=== PATIENT | male | born 1975 | race Caucasian/White ===

== ENCOUNTER 2021-03-11 00:31 | Emergency (ER) | payer OTHER, SELFPAY ==
[2021-03-11 00:49] VITALS: BP 142/92; PULSE 85; RESP 18; TEMP 36.6; O2SAT 97; BMI 29.4
--- NOTE | 2021-03-11 01:35 | CTR_ITS ---
PROCEDURE INFORMATION: Exam: CT Abdomen And Pelvis Without Contrast Exam date and time: 03/11/2021 1:35 AM Age: 45 years old Clinical indication: Abdominal pain; Left; Prior surgery; Surgery type: Appy; Patient HX: Lt flank pain TECHNIQUE: Imaging protocol: Computed tomography of the abdomen and pelvis without contrast. Radiation optimization: All CT scans at this facility use at least one of these dose optimization techniques: automated exposure control; mA and/or kV adjustment per patient size (includes targeted exams where dose is matched to clinical indication); or iterative reconstruction. COMPARISON: No relevant prior studies available. RADIATION DOSE METRICS: Total DLP (mGy-cm): 1596.51 FINDINGS: Liver: Calcified hepatic granulomas. Gallbladder and bile ducts: Contracted gallbladder. Pancreas: Normal. No ductal dilation. Spleen: Calcified splenic granulomas. One or more accessory splenules. Adrenal glands: Normal. No mass. Kidneys and ureters: 3 mm left UVJ stone with mild left hydronephrosis. Stomach and bowel: Unremarkable. No obstruction. No mucosal thickening. Appendix: No evidence of appendicitis. Intraperitoneal space: Unremarkable. No free air. No significant fluid collection. Vasculature: Calcification of the abdominal aorta and/or iliac arteries consistent with atherosclerotic vessel disease. Lymph nodes: Unremarkable. No enlarged lymph nodes. Urinary bladder: Unremarkable as visualized. Reproductive: Unremarkable as visualized. Bones/joints: Severe L5-S1 degenerative disc disease and spondylosis with Modic type III sclerotic endplate degenerative changes. Soft tissues: Unremarkable. CT/CT kidney stone [id number] IMPRESSION: 3 mm left UVJ stone with mild left hydronephrosis. Radiation Dose CTDIVOL = (mGy): DLP = 1596.51 (mGy-cm)
--- NOTE | 2021-03-11 01:40 | ED_ITS ---
HPI - Abdominal Pain General: Chief Complaint: Abdominal Pain Stated Complaint: ab pain, poss kidney Time Seen by Provider: 03/11/21 01:17 Source: patient Mode of arrival: ambulatory Limitations: no limitations History of Present Illness: HPI narrative: 45-year-old male states he started having left-sided flank pain 24 hours ago its gradually radiated to his left groin. He states pain is sharp in nature and rates it a 8 out of 10. He has had nausea and vomiting from the pain. Denies any worsening improving factors. Denies any tenderness on palpation. He denies any history of kidney stones. Denies any difficulty urinating. Associated Symptoms: Reports nausea and vomiting; Denies chills and fever(s) Review of Systems Const: Denies: fever(s), chills, body aches or change in appetite Eyes: Denies: blurry vision or eye discomfort ENMT: Denies: throat pain or dental pain Card: Denies: chest pain Resp: Denies: dyspnea GI: Reports: nausea and vomiting : Reports: flank pain Musc: Denies: neck pain or back pain Skin/Breast: Denies: rash Neuro: Denies: headache(s) Psych: Denies: depression Ryan/Lymph: Denies: easy bruising All/Imm: Denies: urticaria Physical Exam Const: COMMON NORMALS: no acute distress, patient oriented x3 and healthy appearing HENMT: COMMON NORMALS: normocephalic and atraumatic HEAD & SCALP: normocephalic and atraumatic Eye: COMMON NORMALS: Equal, round and reactive pupils present and EOMs intact bilaterally PUPIL: Yes Equal, round and reactive pupils present Neck/C-Spine: COMMON NORMALS: full ROM and supple Chest: COMMONS NORMALS: normal inspection of the chest and normal palpation of entire chest wall Resp: COMMON NORMALS: normal respiratory effort, No retractions, No use of accessory muscles and clear to auscultation bilaterally AUSCULTATION: clear to auscultation bilaterally Cardio: COMMON NORMALS: regular rate, regular rhythm and No murmurs present (Cardio) RATE: regular rate RHYTHM: regular rhythm GI: COMMON NORMALS: Normal to inspection, nondistended, normoactive bowel sounds present, Soft to palpation, non-tender and no masses PALPATION: Yes Soft to palpation Extremity: COMMON NORMALS: normal to inspection and full ROM Neuro: COMMON NORMALS: patient oriented x3, moves all extremities and no focal motor deficits Psych: COMMON NORMALS: mental status grossly normal, Normal thought process present and cooperative THOUGHT PROCESS: Normal thought process present Skin: COMMON NORMALS: no rashes or lesions noted and no wounds GENERAL SKIN EXAM: no rashes or lesions noted Course Vital Signs: Vital signs: Vital Signs Temperature 98 F 03/11/21 03:45 Pulse Rate 62 03/11/21 03:45 Respiratory Rate 17 03/11/21 03:45 Blood Pressure 142/71 03/11/21 03:45 Pulse Oximetry 97 03/11/21 03:45 MDM - Abdominal Pain MDM Narrative: Medical decision making narrative: Patient presents with a kidney stone. He is well-appearing here and his pain is much improved. He should have no problems passing the stone. Will prescribe him pain meds and have him follow-up with urology and return if worsening. Lab Data: Labs: Lab Results 03/11/21 03/11/21 03/11/21 Range/Units 02:30 02:30 02:49 WBC Cancelled Corrected WBC Cancelled RBC Cancelled Hgb Cancelled Hct Cancelled MCV Cancelled MCH Cancelled MCHC Cancelled RDW Cancelled Plt Count Cancelled MPV Cancelled Gran % Cancelled Neut % (Auto) Cancelled Lymph % (Auto) Cancelled [place] % (Auto) Cancelled Eos % (Auto) Cancelled Baso % (Auto) Cancelled Neut # (Auto) Cancelled Lymph # (Auto) Cancelled [place] # (Auto) Cancelled Eos # (Auto) Cancelled Baso # (Auto) Cancelled Absolute Gran (aut o) Cancelled Nucleated RBC % (a uto) Cancelled Nucleated RBCs # Cancelled Sodium Cancelled 133 L Potassium Cancelled 3.8 Chloride Cancelled 101 Carbon Dioxide Cancelled 20 L Anion Gap Cancelled 15.8 BUN Cancelled 12 Creatinine Cancelled 1.2 GFR Calculation Cancelled 64.9 L Glucose Cancelled 118 H Calculated Osmolal ity Cancelled 277 L Calcium Cancelled 9.0 Total Bilirubin Cancelled 0.5 AST Cancelled 21 ALT Cancelled 16 Alkaline Phosphata se Cancelled 106 Total Protein Cancelled 6.6 Albumin Cancelled 3.9 Globulin Cancelled 2.7 Lipase Cancelled 12 L 03/11/21 Range/Units 02:49 WBC 13.9 H Corrected WBC RBC 4.48 Hgb 14.4 Hct 43.1 MCV 96.2 H MCH 32.1 MCHC 33.4 RDW 12.3 Plt Count 235 MPV 9.3 Gran % Neut % (Auto) 66.8 Lymph % (Auto) 21.8 [place] % (Auto) 9.7 Eos % (Auto) 1.0 Baso % (Auto) 0.3 Neut # (Auto) 9.29 H Lymph # (Auto) 3.0 [place] # (Auto) 1.3 H Eos # (Auto) 0.1 Baso # (Auto) 0.0 Absolute Gran (aut o) Nucleated RBC % (a uto) 0 Nucleated RBCs # 0.0 Sodium Potassium Chloride Carbon Dioxide Anion Gap BUN Creatinine GFR Calculation Glucose Calculated Osmolal ity Calcium Total Bilirubin AST ALT Alkaline Phosphata se Total Protein Albumin Globulin Lipase Imaging Data ^: CT Abd/Pel: Radiologist's impression: [id number] [id number] [address] Scan Report Signed Patient: Manas Ponce Unit #: [id number] : [id number] Age/Sex: 45 / M ADM Date: 03/11/21 Loc: ER Room/Bed: Attending Dr: Ordering Provider/Ordering MD: Sy Ching MD Date of Service: 03/11/21 Procedure(s): CT kidney stone [id number] Accession Number(s): [id number] Report Number: [id number] PROCEDURE INFORMATION: Exam: CT Abdomen And Pelvis Without Contrast Exam date and time: 03/11/2021 1:35 AM Age: 45 years old Clinical indication: Abdominal pain; Left; Prior surgery; Surgery type: Appy; Patient HX: Lt flank pain TECHNIQUE: Imaging protocol: Computed tomography of the abdomen and pelvis without contrast. Radiation optimization: All CT scans at this facility use at least one of these dose optimization techniques: automated exposure control; mA and/or kV adjustment per patient size (includes targeted exams where dose is matched to clinical indication); or iterative reconstruction. COMPARISON: No relevant prior studies available. RADIATION DOSE METRICS: Total DLP (mGy-cm): 1596.51 FINDINGS: Liver: Calcified hepatic granulomas. Gallbladder and bile ducts: Contracted gallbladder. Pancreas: Normal. No ductal dilation. Spleen: Calcified splenic granulomas. One or more accessory splenules. Adrenal glands: Normal. No mass. Kidneys and ureters: 3 mm left UVJ stone with mild left hydronephrosis. Stomach and bowel: Unremarkable. No obstruction. No mucosal thickening. Appendix: No evidence of appendicitis. Intraperitoneal space: Unremarkable. No free air. No significant fluid collection. Vasculature: Calcification of the abdominal aorta and/or iliac arteries consistent with atherosclerotic vessel disease. Lymph nodes: Unremarkable. No enlarged lymph nodes. Urinary bladder: Unremarkable as visualized. Reproductive: Unremarkable as visualized. Bones/joints: Severe L5-S1 degenerative disc disease and spondylosis with Modic type III sclerotic endplate degenerative changes. Soft tissues: Unremarkable. CT/CT kidney stone [id number] IMPRESSION: 3 mm left UVJ stone with mild left hydronephrosis. Radiation Dose CTDIVOL = (mGy): DLP = 1596.51 (mGy-cm) Discharge Plan Discharge Patient Disposition: Home Clinical Impression: Kidney stone Condition: Stable Prescriptions: New hydrocodone-acetaminophen 5-325 mg tablet 1 tab PO Q6H PRN (Reason: pain) Qty: 14 RF: 0 ondansetron 4 mg tablet,disintegrating 4 mg PO Q6H PRN (Reason: nausea and vomiting) Qty: 14 RF: 0 Discharge Orders: Discharge ED (Routine); Ordered 03/11/21 Ordered By: Sy Ching Discharge Diet: Advance as tolerated Discharge Activity: Resume usual activity Patient Instructions: Opioid Safety Coding Level of Care Code ED Aircraft Technician for Send[employer] Fwd Exam Comprehensive
[2021-03-11 02:24] VITALS: BP 130/82; PULSE 66; RESP 17; O2SAT 95
[2021-03-11 02:25] VITALS: RESP 18
[2021-03-11] MEDS: HYDROmorphone 1 mg/mL INJ 1 mL IVP (02:25)
[2021-03-11] MEDS: ondansetron 2 mg/ML SDV 2 mL 4 MG IVP (02:25)
[2021-03-11 02:53] LABS: Basophils % 0.3 %; Eosinophils # 0.1 10^3/uL (0.0-0.8); Hematocrit 43.1 % (42.0-52.0); Hemoglobin 14.4 g/dL (11.7-16.6); Lymphocytes % 21.8 %; Mean Corpuscular HGB Conc 33.4 g/dL (30.0-36.0); Mean Corpuscular Hemoglobin 32.1 pg (28.0-34.0); Mean Corpuscular Volume 96.2 fL (80-94); Mean Platelet Volume 9.3 fL (7.4-10.4); Monocytes # 1.3 10^3/uL (0.2-0.9); Monocytes % 9.7 %; Neutrophils # 9.29 10^3/uL (1.8-7.7); Neutrophils % 66.8 %; Nucleated Red Blood Cells % 0 %; Platelet Count 235 10^3/cmm (130-400); Red Blood Count 4.48 10^6/uL (4.1-5.3); Red Cell Distribution Width 12.3 % (12.1-15.1); White Blood Count 13.9 10^3/uL (4.0-10.0)
[2021-03-11 03:29] LABS: Alanine Aminotransferase 16 U/L (0-41); Albumin Level 3.9 g/dL (3.5-5.2); Alkaline Phosphatase 106 IU/L (40-130); Anion Gap 15.8 (5-19); Aspartate Amino Transferase 21 U/L (0-40); Blood Urea Nitrogen 12 mg/dL (6-20); Carbon Dioxide 20 mmol/L (22-29); Chloride 101 mmol/L (98-107); Globulin 2.7 g/dL (1.3-4.6); Glomerular Filtration Rate 64.9 mL/min (90-130); Glucose 118 mg/dL (65-115); Lipase 12 U/L (13-60); Osmolality Calculated 277 mOsm/kg (285-295); Potassium 3.8 mmol/L (3.5-5.1); Sodium 133 mmol/L (136-145); Total Bilirubin 0.5 mg/dL (0.15-1.2); Total Protein 6.6 g/dL (6.6-8.7)
[2021-03-11 03:30] VITALS: BP 142/71; PULSE 63; RESP 12; O2SAT 96
[2021-03-11 03:45] VITALS: BP 142/71; PULSE 62; RESP 17; TEMP 36.6; O2SAT 97
--- NOTE | 2021-03-11 09:20 | PC.SOCIAL ---
Addendum entered by Adrianne Fisher 03/24/21 14:45: Patient had an appointment scheduled with the office of Dr. Gaitan. Patient called the clinic, and cancelled the appointment. Original Note: spoke with Shraddha this am at 0919. Provided information and they will review records and call patient with an appointment.
== END 2021-03-11 03:48 | disposition home or self-care (01) ==
PROVIDERS: Emergency Provider Emergency Medicine
DX: N20.0 Calculus of kidney (principal)
CPT/HCPCS: 36415; 74176; 80053; 83690; 85025; 96374; 96375; 99284; J1170; J2405